=== PATIENT | male | born 1985 | race Caucasian/White ===

== ENCOUNTER 2017-03-08 12:46 | Emergency (ER) | payer OTHER ==
[2017-03-08 12:55] VITALS: O2SAT 96
[2017-03-08] MEDS ORDERED: TDAP ADULT 0.5 ML INJ (BOOSTRIX) IM ONE (12:59)
[2017-03-08] MEDS ORDERED: ceFAZolin 1 GM in NS 100 ML IV ONE (13:37)
--- NOTE | 2017-03-08 14:10 | EDPHY ---
H & P Stated Complaint: injury left index finger with nailgun Time Seen by Provider: 03/08/17 13:04 HPI/ROS: CHIEF COMPLAINT: Left index finger injury HISTORY OF PRESENT ILLNESS: This is a healthy 31-year-old male who had his left hand behind a board, using it to support the board. In his right hand he had a nail gun. As he nailed the board he realized that the nails were longer than he had anticipated and the nail went through the board into his left index finger. The puncture went through the tip of his left index finger and came out the other side. It was a 16 gauge nail. He believes that his tetanus is out of date. No other injuries. REVIEW OF SYSTEMS: A ten point review of systems was performed and is negative with the exception of the items mentioned in the HPI. Source: Patient Exam Limitations: No limitations - Personal History Current Tetanus Diphtheria and Acellular Pertussis (TDAP): Unsure - Medical/Surgical History Hx Asthma: No Hx Chronic Respiratory Disease: No Hx Diabetes: No Hx Cardiac Disease: No Hx Renal Disease: No Hx Cirrhosis: No Hx Alcoholism: No Hx HIV/AIDS: No Hx Splenectomy or Spleen Trauma: No Other PMH: acl left - Social History Smoking Status: Never smoked Additional Social History: He lives with his . He works as a CPA. - Physical Exam Exam: General Appearance: Alert. Vital signs reviewed. Focused exam was performed. Respiratory: Lungs are clear to auscultation; no wheezes, rales, or rhonchi. Cardiovascular: Regular rate and rhythm; no murmur, rub, or gallop. Gastrointestinal: Abdomen is soft and nontender, no masses or organomegaly, bowel sounds normal. Skin: Warm and dry, no rashes on exposed skin, normal color. Back: Nontender to palpation over the thoracolumbar spine. No CVAT. Extremities: There is a small puncture wound on the dorsal pad of his left index finger, no active bleeding. There is a tiny sub fungal hematoma on the fingernail of the left IF nail with a speck of blood at the cuticle. Full flexion and extension of the index finger with testing of the MCP, PIP, and DIP. Sensation is intact to light touch over the left index finger. Neurological: Alert and oriented. Moving all four extremities easily and equally. See extremity exam. Pulse: 2+ radial pulse. Psychiatric: Normal affect. Constitutional: Initial Vital Signs Temperature (C) 36.7 C 03/08/17 12:51 Heart Rate 84 03/08/17 12:51 Respiratory Rate 18 03/08/17 12:51 Blood Pressure 109/67 03/08/17 12:51 O2 Sat (%) 96 03/08/17 12:51 O2 Delivery Mode Room Air Allergies/Adverse Reactions: amoxicillin Allergy (Verified 03/08/17 12:50) Home Medications: Medication Instructions Recorded Cephalexin [Keflex] 500 mg PO TID #20 cap 03/08/17 ZINC 03/08/17 Zyrtec 03/08/17 Medical Decision Making - Diagnostics Imaging Results: Imaging Impressions Finger X-Ray 03/08/17 13:17 Impression: Two lateral cortical fracture fragments of the distal phalanx. ED Course/Re-evaluation: Nail gun puncture wound with a distal phalanx fracture. This qualifies as an open fracture. He was given a dose of IV Ancef in the emergency department and a prescription for Keflex. The wound was washed. It was placed in a splint. He will follow up with Dr. Memo Jack, hand specialist. Tetanus updated. Differential Diagnosis: Differential diagnosis includes but is not limited to fracture either open or closed, dislocation, laceration, puncture wound, retained foreign body. - Data Points Medications Given: Discontinued Medications Diphtheria/Tetanus/Acell Pertussis (Boostrix) 0.5 ml IM .ONCE ONE Stop: 03/08/17 13:00 Last Admin: 03/08/17 13:05 Dose: 0.5 ml Cefazolin Sodium 1 gm/ Sodium (Chloride) 100 mls @ 400 mls/hr IV EDNOW ONE PRN Reason: Protocol Stop: 03/08/17 13:51 Last Admin: 03/08/17 13:55 Dose: 100 mls Departure - Departure Disposition: Home, Routine, Self-Care Clinical Impression: Injury of finger by nail gun Qualifiers: Encounter type: initial encounter Laterality: left Qualified Code(s): S69.92XA - Unspecified injury of left wrist, hand and finger(s), initial encounter Fracture, finger, distal phalanx, open Qualifiers: Encounter type: initial encounter Finger: index finger Fracture alignment: nondisplaced Laterality: left Qualified Code(s): S62.661B - Nondisplaced fracture of distal phalanx of left index finger, initial encounter for open fracture Condition: Good Instructions: Finger Fracture (ED), Puncture Wound (ED) Additional Instructions: Adult Pain & Fever Control: We recommend Acetaminophen (Tylenol) and Ibuprofen (Motrin,Advil) for pain and fever control. When fever is high or pain severe, both drugs can be used at the same time, but at different intervals. Please note the time differences. Your dose is: Acetaminophen 650mg every 4 to 6 hours Ibuprofen 400mg every 6-8 hours with food OR Note: do not take Acetaminophen with Hydrocodone (Vicodin, Lortab) or Oycodone (Percocet). These medications also contain Acetaminophen. No more than 3000mg of Acetaminophen should be taken in 24 hours (for an adult).Take antibiotics as prescribed. I am recommending that you follow up with Dr. Memo Jack, hand specialist. Call his office 1st thing Friday morning. Let the office staff know that you have a nail gun injury to the finger of your dominant hand. Make sure they know that the bone was also injured. They will schedule follow-up appointment for you. Referrals: Sudeep Garcia MD [Primary Care Provider] - As per Instructions Jun Jack MD [Medical Doctor] - As per Instructions Prescriptions: Cephalexin [Keflex] 500 mg PO TID #20 cap
[2017-03-08 14:50] VITALS: BP 112/63; PULSE 60; RESP 16; TEMP 97.7
== END 2017-03-08 14:54 | disposition home or self-care (01) ==
LOC: CED 12:46
DX: S62.661B Nondisplaced fracture of distal phalanx of left index finger, initial encounter for open fracture (principal); Z23 Encounter for immunization; W29.4XXA Contact with nail gun, initial encounter
CPT/HCPCS: 73140-PO; 96365; J0690; L3925